=== PATIENT | male | born 1940 | race Caucasian/White ===

== ENCOUNTER → 2017-08-31 | Outpatient (CLI) | payer OTHER ==
[~2017-08-31] MED LIST: ASCO1500 PO; ASPI-650 PO; CHOL200024 PO; EZET10TA18 PO; FINA5TAB4 PO; K-2 PO; LISI-170 PO; OMNIPAQUE 350 MG/ML, 100ML BOTTLE ONE; ROSU5TAB PO; TAMS0.4C2 PO; UBID100C24 PO; VITA100C8 PO; VITAMIN B6 PO; VITMIN PO; [UNRECOGNIZED DRUG - CODE] PO; [UNRECOGNIZED DRUG - OTHER] PO
[2017-08-31 11:44] LABS: CREATININE 1.06 mg/dL (0.7-1.3)
== END ==
LOC: RAD 11:06
PROVIDERS: ATTEND Surgery
DX: C79.9 Secondary malignant neoplasm of unspecified site (principal); C49.22 Malignant neoplasm of connective and soft tissue of left lower limb, including hip; M51.34 Other intervertebral disc degeneration, thoracic region; I77.810 Thoracic aortic ectasia
CPT/HCPCS: 36415; 71260; 74177; 82565; Q9967

== ENCOUNTER → 2017-09-15 | Outpatient (CLI) | payer OTHER ==
[~2017-09-15] MED LIST changes: +GADOBUTROL 7.5 MMOL/7.5 ML PFS ONE; -OMNIPAQUE 350 MG/ML, 100ML BOTTLE ONE
== END ==
LOC: RAD 08:57
PROVIDERS: ATTEND Family Medicine
DX: C49.9 Malignant neoplasm of connective and soft tissue, unspecified (principal)
CPT/HCPCS: 73720; A9585

== ENCOUNTER 2017-11-13 09:10 | Observation (INO) | payer OTHER ==
[2017-11-10 10:21] LABS: ALANINE AMINOTRANSFERASE 24 U/L (12-78); ALBUMIN 3.7 g/dL (3.4-5.0); ANION GAP 6 mmol/L (5-15); CALCIUM 8.9 mg/dL (8.5-10.1); CHLORIDE 108 mmol/L (98-107)
[2017-11-10 10:23] LABS: ALKALINE PHOSPHATASE 77 U/L (45-117); BILIRUBIN,TOTAL 0.7 mg/dL (0.2-1.0); TOTAL PROTEIN 6.5 g/dL (6.4-8.2)
[~2017-11-13] VITALS: Ht 165.1 cm; Wt 77.0 kg
[~2017-11-13 09:10] MED LIST changes: -GADOBUTROL 7.5 MMOL/7.5 ML PFS ONE
[2017-11-13 14:23] VITALS: BP 167/78
[2017-11-13] MEDS ORDERED: OXYcodone/APAP 5/325MG TABLET PO PRN (22:30)
[2017-11-13] MEDS ORDERED: LACTATED RINGERS 1,000 ML IV SCH (22:30)
[2017-11-13] MEDS ORDERED: ONDANSETRON 2MG/ML, 2ML IVPush PRN (22:30)
[2017-11-13] MEDS ORDERED: VITAMIN E 400 UNITS CAPSULE PO SCH (22:30)
[2017-11-13] MEDS ORDERED: VITAMIN A 10,000 UNIT CAPSULE PO SCH (22:30)
[2017-11-13] MEDS ORDERED: MORPHINE SULFATE 4 MG/ML, 1ML IVPush PRN (22:30)
[2017-11-14] MEDS ORDERED: TAMSULOSIN 0.4 MG CAP.ER.24H PO SCH (09:00)
[2017-11-14] MEDS ORDERED: CHOLECALCIFEROL 1,000 UNIT TABLET PO SCH (09:00)
[2017-11-14] MEDS ORDERED: PYRIDOXINE 50MG TABLET PO SCH (09:00)
[2017-11-14] MEDS ORDERED: CYANOCOBALAMIN 1,000 MCG TABLET PO SCH (09:00)
[2017-11-14] MEDS ORDERED: LISINOPRIL 20 MG TABLET PO SCH (09:00)
[2017-11-14] MEDS ORDERED: ASCORBIC ACID 500 MG TABLET PO SCH (09:00)
[2017-11-14] MEDS ORDERED: FINASTERIDE 5 MG TABLET PO SCH (09:00)
[2017-11-14] MEDS ORDERED: ASPIRIN 325 MG TABLET PO SCH (09:00)
[2017-11-14] MEDS ORDERED: EZETIMIBE 10 MG TABLET PO SCH (09:00)
[2017-11-14] MEDS ORDERED: ATORVASTATIN 10 MG TABLET PO SCH (21:00)
== END 2017-11-13 23:50 | disposition home or self-care (01) ==
LOC: OR 09:10 → STAR 09:10 → 4NOR 19:15 → STAR 19:15 → UNDOENCLIBED 19:15 → UNDOFXCLIRRACCOM 19:49 → 4NOR 19:49 → EDCLIBED 19:49 → UNDOFXCLIACCOM 19:49 → UNDOFXCLISVC 19:49 → STAR 20:43 → 4NOR 20:43 → UNDORMCLIBED 20:43 → 4NOR 20:43 → RMCLIBED 20:43 → UNDOADMOB 20:53 → 4NOR 20:53
PROVIDERS: ADMIT Surgery; ATTEND Surgery
DX: K40.90 Unilateral inguinal hernia, without obstruction or gangrene, not specified as recurrent (principal); K66.8 Other specified disorders of peritoneum; K66.0 Peritoneal adhesions (postprocedural) (postinfection)
CPT/HCPCS: 36415; 49650; 80053; 93005; C1781; G0378; J0690; J1100; J2370; J2405; J2704; J2710; J3010; J7120; Q0162; S2900

== ENCOUNTER → 2019-05-09 | Outpatient (CLI) | payer MEDICARE ==
[~2019-05-09] MED LIST changes: -EZET10TA18 PO; +EZET10TA70 PO
== END | disposition home or self-care (01) ==
LOC: CFH 12:22
PROVIDERS: ATTEND Internal Medicine Cardiovascular Disease
DX: Z01.810 Encounter for preprocedural cardiovascular examination (principal); I10 Essential (primary) hypertension
CPT/HCPCS: 78452; 93017; A9502

== ENCOUNTER → 2019-06-08 | Outpatient (CLI) | payer MEDICARE ==
[~2019-06-08] MED LIST changes: +CYAN50TA PO; +FAMO10TA31 PO; +FOLI0.4T2 PO; +LACT1CAP35 PO; +LISI5TAB7 PO; +MAG PO; +Niacin PO; +POTA10TA31 PO; +POTASSIUM PO; +PYRI50TA7 PO; +RIBOFLAVIN PO; +Thiamine PO; +Turmeric PO; +VITAMIN K PO; +Vitamin E PO
[2019-06-08 13:14] LABS: ALBUMIN 3.8 g/dL (3.4-5.0); ANION GAP 4 mmol/L (5-15); CALCIUM 8.9 mg/dL (8.5-10.1); CHLORIDE 108 mmol/L (98-107)
[2019-06-08 13:16] LABS: ALANINE AMINOTRANSFERASE 22 U/L (12-78); ALKALINE PHOSPHATASE 73 U/L (45-117); BILIRUBIN,TOTAL 0.6 mg/dL (0.2-1.0); CREATININE 0.96 mg/dL (0.7-1.3); TOTAL PROTEIN 6.7 g/dL (6.4-8.2)
== END | disposition home or self-care (01) ==
LOC: STAR 12:08
PROVIDERS: ATTEND Surgery
DX: Z01.818 Encounter for other preprocedural examination (principal); K43.2 Incisional hernia without obstruction or gangrene
CPT/HCPCS: 36415; 80053

== ENCOUNTER 2019-06-16 05:33 | Day surgery (SDC) | payer MEDICARE ==
[~2019-06-16] VITALS: Ht 172.7 cm; Wt 80.0 kg
[2019-06-16] MEDS ORDERED: LACTATED RINGERS 1,000 ML IV SCH (06:04)
[2019-06-16 06:21] VITALS: BP 125/81
[2019-06-16] MEDS ORDERED: EPINEPHRINE 1 MG/ML, 1ML ONE (06:54)
[2019-06-16] MEDS ORDERED: BUPIVACAINE/PF 0.5% ONE (06:54)
[2019-06-16] MEDS ORDERED: MIDAZOLAM 1 MG/ML, 2ML ONE (07:04)
[2019-06-16] MEDS ORDERED: FENTANYL PF 250 MCG/5ML ONE (07:04)
[2019-06-16] MEDS ORDERED: KETOROLAC 30 MG/1 ML IV PRN (08:00)
[2019-06-16] MEDS ORDERED: ALBUTEROL SULFATE 2.5 MG/3 ML NPPB PRN (08:00)
[2019-06-16] MEDS ORDERED: LABETALOL 5MG/ML, 20ML IV PRN (08:00)
[2019-06-16] MEDS ORDERED: hydrALAzine 20 MG/ML, 1ML IV PRN (08:00)
[2019-06-16] MEDS ORDERED: DIAZEPAM 5 MG/ML, 2ML IV PRN ×2 (08:00)
[2019-06-16] MEDS ORDERED: MEPERIDINE/PF 25MG/0.5ML IVPush PRN (08:00)
[2019-06-16] MEDS ORDERED: ONDANSETRON 2MG/ML, 2ML IVPush PRN (08:00)
[2019-06-16] MEDS ORDERED: PROMETHAZINE 25 MG/ML, 1ML IV PRN (08:00)
[2019-06-16] MEDS ORDERED: METOCLOPRAMIDE 5 MG/ML, 2ML IV PRN (08:00)
[2019-06-16] MEDS ORDERED: HYDROmorphone 1 MG/ML, 1ML INJ IV PRN (08:00)
[2019-06-16] MEDS ORDERED: ACETAMINOPHEN 650 MG/20.3 ML UDC ONE (10:46)
[2019-06-16] MEDS ORDERED: OXYcodone 5 MG/5 ML ORAL.SOL UDC ONE ×2 (10:47→11:36)
[2019-06-16] MEDS ORDERED: FENTANYL PF 100 MCG/2ML ONE (10:47)
[2019-06-16] MEDS: OXYcodone 5 MG/5 ML ORAL.SOL UDC PO PRN ×3 (10:50→13:48)
[2019-06-16] MEDS: FENTANYL PF 100 MCG/2ML IV PRN ×4 (10:52→11:33)
[2019-06-16] MEDS ORDERED: ACETAMINOPHEN 650 MG/20.3 ML UDC PO PRN (11:00)
[2019-06-16] MEDS ORDERED: DIAZEPAM 5 MG/ML, 2ML ONE (11:35)
[2019-06-16] MEDS ORDERED: HYDROmorphone 1 MG/ML, 1ML INJ ONE (11:36)
[2019-06-16] MEDS ORDERED: DEXAMETHASONE 4 MG/ML, 1ML ONE (15:05)
[2019-06-16] MEDS ORDERED: CEFAZOLIN 1,000 MG ONE (15:05)
[2019-06-16] MEDS ORDERED: ROCURONIUM 10MG/ML,5ML ONE (15:05)
[2019-06-16] MEDS ORDERED: SUCCINYLCHOLINE 20 MG/ML, 10ML ONE (15:05)
[2019-06-16] MEDS ORDERED: ONDANSETRON 2MG/ML, 2ML ONE (15:05)
[2019-06-16] MEDS ORDERED: PROPOFOL 10 MG/ML, 20ML ONE (15:05)
== END 2019-06-16 15:55 | disposition home or self-care (01) ==
LOC: OUT 05:33
PROVIDERS: ATTEND Surgery
DX: K43.2 Incisional hernia without obstruction or gangrene (principal); K66.0 Peritoneal adhesions (postprocedural) (postinfection); N40.0 Benign prostatic hyperplasia without lower urinary tract symptoms; I10 Essential (primary) hypertension; I48.91 Unspecified atrial fibrillation; E78.5 Hyperlipidemia, unspecified; Z79.82 Long term (current) use of aspirin; Z79.899 Other long term (current) drug therapy; Z85.828 Personal history of other malignant neoplasm of skin; Z90.49 Acquired absence of other specified parts of digestive tract; Z96.612 Presence of left artificial shoulder joint; Z98.890 Other specified postprocedural states
CPT/HCPCS: 49656; C1781; J0171; J0330; J0690; J1100; J2250; J2405; J2704; J3010; J3360; J7120

== ENCOUNTER 2019-10-10 08:55 | Outpatient (CLI) | payer MEDICARE ==
[2019-10-10] MEDS ORDERED: OMNIPAQUE 350 MG/ML, 100ML BOTTLE ONE (11:00)
== END 2019-10-10 23:59 | disposition home or self-care (01) ==
LOC: CFH 08:55
PROVIDERS: ATTEND Internal Medicine Hematology & Oncology
DX: C49.9 Malignant neoplasm of connective and soft tissue, unspecified (principal); K44.9 Diaphragmatic hernia without obstruction or gangrene; M47.9 Spondylosis, unspecified
CPT/HCPCS: 71260; 73720; 74160; 82565; Q9967